=== PATIENT | male | born 1950 | race American Indian/Alaskan Native ===

== ENCOUNTER 2019-01-13 10:31 | Outpatient (CLI) | payer MEDICARE ==
[2019-01-13 11:27] LABS: Blood Urea Nitrogen 10 mg/dL (9-20)
--- NOTE | 2019-01-13 14:09 | Cat Scan Report ---
CT ABDOMEN WITH CONTRAST: HISTORY: Epigastric abdominal pain. COMPARISON: None at this facility. TECHNIQUE: Helical CT in 1.25mm intervals following IV contrast. Sagittal and coronal reconstructions. FINDINGS: Lung bases: Heart size is borderline to mildly increased. The visualized lung bases are well aerated. Liver: There is a large heterogeneous enhancing mass in the right hepatic lobe measuring 14.0 x 12.0 x 13.1 cm. There is peripheral nodular enhancement with evidence of progressive central filling on the delayed images of the kidneys. This is consistent with a giant cavernous hemangioma. There also appears to be a smaller cavernous hemangioma in the left hepatic lobe measuring 2 cm. No underlying parenchymal liver disease is appreciated. The portal venous system is patent. Biliary system: Normal. Pancreas: Normal. Spleen: Normal. Kidneys/ureters/bladder: There is mild cortical thinning and focal scarring in both kidneys. There also appear to be a few nonobstructing renal stones in both kidneys. Scattered simple cysts are noted the left kidney. The visualized ureters are unremarkable. Adrenal glands: Normal. Aorta: Normal. Intestines: The visualized bowel loops including the stomach are unremarkable. No evidence for focal inflammation or obstruction. Appendix: Normal. Ascites: None. Adenopathy: None. Musculoskeletal: Intact. IMPRESSION: No acute process is identified in the abdomen. Cavernous hemangiomas of the liver as described above. Mild cortical thinning in both kidneys. Bilateral nephrolithiasis is also suspected. Scattered renal cysts.
== END 2019-01-13 10:32 | disposition home or self-care (01) ==
LOC: CT 10:31
PROVIDERS: ATTEND Family Medicine
DX: D18.03 Hemangioma of intra-abdominal structures (principal); N28.1 Cyst of kidney, acquired; B18.2 Chronic viral hepatitis C
CPT/HCPCS: 36415; 74160; 82565; 84520; Q9967